=== PATIENT | male | born 1940 | race Caucasian/White ===

== ENCOUNTER 2019-05-29 08:33 | Outpatient (CLI) | payer BC, MEDICARE ==
[2019-05-29] MEDS ORDERED: Iopamidol 370 76% 100 ML VIAL ONE (09:00)
--- NOTE | 2019-05-29 12:52 | CT ---
CT ABDOMEN AND PELVIS WITH AND WITHOUT IV CONTRAST 05/29/2019 CLINICAL INFORMATION: Microscopic hematuria. COMPARISON: None. Technique: Multiple contiguous axial CT images are obtained through the abdomen and pelvis with IV contrast. Cor onal reformatted images are provided. FINDINGS: Lower Chest: There are calcifications of the mitral valve annulus. There is linear bibasilar atelecta sis and/or scarring present. Vessels: Vascular calcifications are seen in the abdominal aorta and the iliac arteries. Abdomen: Portal vein:Patent Gallbladder: There is a large gallbladder calculus present measuring 3.2 cm. Liver: within normal limits. Spleen: within normal limits. Pancreas: within normal limits. Adrenals: within normal limits. Kidneys: There are 2 fluid attenuation hypodense cystic lesions in the midportion right kidney measur ing 1.7 and 1.8 cm respectively compatible with cysts. There are a few nonobstructing bilateral renal calculi present. Largest calculus in the inferior pole right kidney measures 8 mm with largest calculus midportion left kidney measuring 5 mm. There is no hydronephrosis. No ureteral calculus is seen bilaterally. Bowel: There is colonic diverticulosis present throughout the colon with small amount of retained fec al material noted throughout the colon. Loops of small bowel are normal in caliber. Appendix: The appendix is visualized and normal in caliber. Peritoneum: No ascites or free air; no fluid collection. Mesentery and Retroperitoneum: No enlarged mesenteric or retroperitoneal lymph nodes. Abdominal Wall: within normal limits. Pelvis: Reproductive Organs: No pelvic masses. Pelvis within normal limits. Bladder: within normal limits. Bones: There is severe left hip osteoarthritis. Degenerative changes are seen in the spine. Sclerotic densities are seen in the right proximal femur likely attributable to bone islands. IMPRESSION: 1. Nonobstructing bilateral renal calculi. No ureteral calculus is seen. 2. Cholelithiasis with large gallbladder calculus present. 3. Colonic diverticulosis with small amount of retained fecal material seen throughout the colon. 4. Right renal cysts. 5. Severe left hip osteoarthritis
== END 2019-05-29 08:34 | disposition home or self-care (01) ==
LOC: SCSCT 08:33
PROVIDERS: ATTEND Urology
DX: R31.29 Other microscopic hematuria (principal); M16.12 Unilateral primary osteoarthritis, left hip; N28.1 Cyst of kidney, acquired; K57.30 Diverticulosis of large intestine without perforation or abscess without bleeding; K80.20 Calculus of gallbladder without cholecystitis without obstruction
CPT/HCPCS: 74178; 82565; Q9967

== ENCOUNTER 2019-06-21 08:39 | Outpatient (CLI) | payer BC, MEDICARE ==
--- NOTE | 2019-06-21 11:59 | HP ---
HISTORY OF PRESENT ILLNESS: Mr. Nir Thomas is a very pleasant 78-year-old gentleman accompanied by his , who presents to the [facility] for evaluation of venous ulcerations of the left anterior lower leg. The patient states that weeping from the skin of his left anterior lower leg began approximately 3 weeks ago. He states that he was placed on clindamycin 300 mg p.o. t.i.d. x7 days by Dr. Carter on 06/16/2019. The patient states that in addition, he was seen in the emergency department and given a course of IV clindamycin. The patient states that the wounds of his left anterior lower leg improved in their appearance after the administration of IV clindamycin. The patient states that in the emergency department, the ulcerations were dressed with Xeroform gauze. The patient continues to have pain associated with the ulcerations of his left anterior lower leg. The patient was referred to the Wound Center by Dr. Carter. PAST MEDICAL HISTORY: 1. History of left lower extremity DVT. 2. Osteoarthritis. 3. Nephrolithiasis. 4. Gout. 5. Hypothyroidism. 6. History of diverticulitis. 7. Obstructive sleep apnea. PAST SURGICAL HISTORY: Vas ligation in 1977. MEDICATIONS: 1. Acidophilus. 2. Oxybutynin. 3. LEAD ENGINEER Thyroid. 4. Myrbetriq. 5. Xarelto. 6. Coenzyme Q10. 7. Gabapentin. 8. Lisinopril. 9. Vitamin D. 10. Tramadol. 11. Magnesium. 12. DHEA. ALLERGIES: ELIQUIS, INFLUENZA VACCINE, XYLOCAINE. SOCIAL HISTORY: Negative for tobacco or EtOH use. FAMILY HISTORY: Family history significant for diabetes mellitus. The patient states that his father was diagnosed with diabetes mellitus. Family history is negative for coronary artery disease. REVIEW OF SYSTEMS: The patient reports one episode in the past of weeping of the skin of his left anterior lower leg. The patient states that he has been prescribed compression garments in the past, but has been unable to use compression stockings because of difficulty in putting on the stockings. The patient states that he has been applying compression to his left lower leg with the use of Mundo bandages. PHYSICAL EXAMINATION: VITAL SIGNS: Temperature 97.7, pulse 65, respirations 21, and blood pressure 180/80. GENERAL: A 78-year-old gentleman, lying on stretcher in examination room, in no acute distress. HEENT: Normocephalic, atraumatic. NECK: No nuchal rigidity. CHEST: Clear to auscultation. CV: Regular rate and rhythm. ABDOMEN: Soft. EXTREMITIES: Numerous small ulcerations of the left anterior lower leg are present within an area measuring approximately 11.0 x 16.0 cm. No purulent drainage is associated with any of the wounds. Erythema of the left anterior lower leg is present. No maceration of the skin of the left anterior lower leg is noted. A posterior tibial pulse is easily palpable on the left. Edema of the left lower leg is noted on exam today. NEUROLOGIC: Grossly nonfocal. ASSESSMENT AND PLAN: 1. 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 Xeroform gauze followed by ABDs, Webril, and the 3M Coban 2 Layer Compression System will be applied to the ulcerations today. The patient is to continue clindamycin as previously prescribed. I will see Mr. Thomas again in 1 week. The patient understands and is in agreement with the preceding treatment plan for drainage, saturating all layers of the dressing applied in clinic today. The patient is to discontinue the 3M Coban 2 Layer Compression System and begin dressing changes of Xeroform gauze, followed by ABDs, Kerlix, and Mundo bandages. These dressing changes are to be performed on a daily basis until the patient's followup visit. 2. History of left lower extremity deep venous thrombosis. 3. Osteoarthritis. 4. Nephrolithiasis. 5. Gout. 6. Hypothyroidism. 7. History of diverticulitis. 8. Obstructive sleep apnea. Job ID: [id number]
[2019-06-21] MEDS ORDERED: Sodium Chloride 0.9% 15 ML NEB ONE (15:00)
== END 2019-06-21 08:40 | disposition home or self-care (01) ==
LOC: WCC 08:39
PROVIDERS: ATTEND Family Medicine
DX: I83.228 Varicose veins of left lower extremity with both ulcer of other part of lower extremity and inflammation (principal); L97.929 Non-pressure chronic ulcer of unspecified part of left lower leg with unspecified severity; E03.9 Hypothyroidism, unspecified; N20.0 Calculus of kidney; G47.33 Obstructive sleep apnea (adult) (pediatric); M10.9 Gout, unspecified; Z86.73 Personal history of transient ischemic attack (TIA), and cerebral infarction without residual deficits
CPT/HCPCS: 29581; 99204; A4218; G0463

== ENCOUNTER 2019-06-28 11:35 | Outpatient (CLI) | payer BC, MEDICARE ==
--- NOTE | 2019-06-28 10:15 | PRG ---
DATE OF SERVICE: 06/28/2019 HISTORY: Mr. Nir Thomas is a very pleasant 78-year-old gentleman, accompanied by his , who presents to the [facility] Center for evaluation of venous ulcerations of the left anterior lower leg. The patient previously stated that weeping from the skin of his left anterior lower leg began approximately 3 weeks prior to his initial presentation to the Wound Center. He stated that he was placed on clindamycin 300 mg p.o. t.i.d. x7 days by Dr. Carter on 06/16/2019. The patient stated that in addition, he was seen in the emergency department and given a course of IV clindamycin. The patient stated that the wounds of his left anterior lower leg improved in their appearance after the administration of IV clindamycin. The patient stated that in the emergency department, the ulcerations were dressed with Xeroform gauze. The patient again reports pain associated with the ulcerations of his left anterior lower leg. The patient was referred to the Wound Center by Dr. Carter. After being seen in the Wound Center, the ulcerations were treated with the application of Xeroform gauze, ABDs, Webril, and the 3M Coban 2 Layer Compression System. The patient was unable to tolerate the 3M Coban 2 Layer Compression System and the patient's instead dressed the ulcerations with Xeroform gauze, followed by an ABD, Kerlix, and an Mundo bandage after discontinuing the 3M Coban 2 Layer Compression System. PHYSICAL EXAMINATION: VITAL SIGNS: Temperature 97.4, pulse 63, respirations 20, and blood pressure 160/77. EXTREMITIES: Multiple small ulcerations of the left anterior lower leg are present within an area, measuring approximately 8.5 x 13.0 cm. The dimensions of this area at the time of the patient's last visit were approximately 11.0 x 16.0 cm. No purulent drainage is associated with any of the wounds. Erythema of the left anterior lower leg is present. No maceration of the skin of the left anterior lower leg is noted. A posterior tibial pulse is easily palpable on the left. Edema of the left lower leg is noted on exam today. The appearance of the left anterior lower leg has markedly improved since the patient's last visit. ASSESSMENT AND PLAN: 1. 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 Xeroform gauze, followed by Piper Blackwell, and an Mundo bandage will be applied to the ulcerations today. The patient's is to continue the preceding dressing changes on a daily basis after cleansing and irrigation. I will see Mr. Thomas again in 2 weeks. At this time, arrangements will be made for the initiation of in-home lymphedema therapy. Arrangements will also be made today for the home delivery of wraparound compression. The patient understands and is in agreement with the preceding treatment plan. 2. History of left lower extremity deep venous thrombosis. 3. Osteoarthritis. 4. Nephrolithiasis. 5. Gout. 6. Hypothyroidism. 7. History of diverticulitis. 8. Obstructive sleep apnea. Job ID: [id number]
== END 2019-06-28 11:36 | disposition home or self-care (01) ==
LOC: WCC 11:35
PROVIDERS: ATTEND Family Medicine
DX: I83.229 Varicose veins of left lower extremity with both ulcer of unspecified site and inflammation (principal); I89.0 Lymphedema, not elsewhere classified; N20.0 Calculus of kidney; M10.9 Gout, unspecified; G47.33 Obstructive sleep apnea (adult) (pediatric); M19.90 Unspecified osteoarthritis, unspecified site; Z86.718 Personal history of other venous thrombosis and embolism; Z87.19 Personal history of other diseases of the digestive system

== ENCOUNTER 2019-07-12 13:01 | Outpatient (CLI) | payer BC, MEDICARE ==
--- NOTE | 2019-07-12 10:58 | PRG ---
DATE OF SERVICE: 07/12/2019 HISTORY: Mr. Nir Thomas is a very pleasant 78-year-old gentleman, accompanied by his , who presents to the [facility]ound Center for evaluation of venous ulcerations of the left anterior lower leg. The patient previously stated that weeping from the skin of his left anterior lower leg began approximately 3 weeks prior to his initial presentation to the Wound Center. He stated that he was placed on clindamycin 300 mg p.o. t.i.d. x7 days by Dr. Carter on 06/16/2019. The patient stated that, in addition, he was seen in the emergency department and given a course of IV clindamycin. The patient stated that the wounds of his left anterior lower leg improved in their appearance after the administration of IV clindamycin. The patient stated that in the emergency department, the ulcerations were dressed with Xeroform gauze. The patient was referred to the Wound Center by Dr. Carter. After being seen in the Wound Center, the ulcerations were dressed with the application of Xeroform gauze, ABDs, Webril, and the 3M Coban 2 Layer Compression System. The patient was unable to tolerate the 3M Coban 2 Layer Compression System and the patient's instead dressed the ulcerations with Xeroform gauze, followed by an ABD, Kerlix, and an Mundo bandage after discontinuing the 3M Coban 2 Layer Compression System. PHYSICAL EXAMINATION: VITAL SIGNS: Temperature 97.5, pulse 66, respirations 21, and blood pressure 142/69. EXTREMITIES: Multiple small ulcerations of the left anterior lower leg are present within an area measuring approximately 11.0 x 13.0 cm. The dimensions of this area at the time of the patient's last visit were approximately 8.5 x 13.0 cm. No purulent drainage is associated with any of the wounds. A sample of the serous drainage associated with the wounds was sent for aerobic and anaerobic cultures. Erythema of the left anterior lower leg is present. No maceration of the skin of the left anterior lower leg is noted. A posterior tibial pulse is easily palpable on the left. Edema of the left lower leg is noted on exam today. ASSESSMENT AND PLAN: 1. 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 Xeroform gauze, followed by ABDs, Kerlix, and an Mundo bandage will be applied to the ulcerations today. The patient's is to continue the preceding dressing changes on a daily basis after cleansing and irrigation. The patient has been given a prescription for Augmentin 875/125 #21 p.o. b.i.d. x10 days. Antibiotic therapy will be modified based upon the results of the cultures obtained today. I will see Mr. hTomas again in 2 weeks. At this time, arrangements will be continued for the initiation of in-home lymphedema therapy. Arrangements will also continue for the home delivery of wraparound compression. The patient states that he has had 2 venous ultrasounds at [facility], ordered by Dr. Cruz. 2. History of left lower extremity deep venous thrombosis. 3. Osteoarthritis. 4. Nephrolithiasis. 5. Gout. 6. Hypothyroidism. 7. History of diverticulitis. 8. Obstructive sleep apnea. Job ID: [id number]
== END 2019-07-12 13:02 | disposition home or self-care (01) ==
LOC: WCC 13:01
PROVIDERS: ATTEND Family Medicine
DX: I83.228 Varicose veins of left lower extremity with both ulcer of other part of lower extremity and inflammation (principal); L97.929 Non-pressure chronic ulcer of unspecified part of left lower leg with unspecified severity; M19.90 Unspecified osteoarthritis, unspecified site; N20.0 Calculus of kidney; M10.9 Gout, unspecified; E03.9 Hypothyroidism, unspecified; G47.33 Obstructive sleep apnea (adult) (pediatric); Z87.19 Personal history of other diseases of the digestive system; Z86.718 Personal history of other venous thrombosis and embolism
CPT/HCPCS: 87070; 87077; 87186; 87205

== ENCOUNTER 2019-07-26 09:10 | Outpatient (CLI) | payer BC, MEDICARE ==
[~2019-07-26 09:10] MED LIST: Sodium Chloride 0.9% 15 ML NEB ONE
--- NOTE | 2019-07-26 10:38 | PRG ---
DATE OF SERVICE: 07/26/2019 SUBJECTIVE: Mr. Nir Thomas is a very pleasant 78-year-old gentleman, accompanied by his , who presents to the Wound Center for evaluation of venous ulcerations of the left lower leg. The patient previously stated that weeping from the skin of his left anterior lower leg began approximately 3 weeks prior to his initial presentation to the Wound Center. He stated that he was placed on clindamycin 300 mg p.o. t.i.d. x7 days by Dr. Carter on 06/16/2019. The patient stated that in addition, he was seen in the emergency department and given a course of IV clindamycin. The patient stated that the wounds of his left anterior lower leg improved in their appearance after the administration of IV clindamycin. The patient stated that in the emergency department, the ulcerations were dressed with Xeroform gauze. The patient was referred to the Wound Center by Dr. Carter. After being seen in the Wound Center, the ulcerations were dressed with the application of Xeroform gauze, ABDs, Webril, and the 3M Coban 2-Layer Compression System. The patient was unable to tolerate the 3M Coban 2-Layer Compression System and the patient's instead dressed the ulcerations with Xeroform gauze followed by an ABD, Kerlix, and an Mundo bandage after discontinuing the 3M Coban 2-Layer Compression System. At the time of the patient's last visit, the patient was placed on dressing changes of Xeroform gauze followed by ABDs, Kerlix, and an Mundo bandage. The patient states that in addition to the preceding dressings, the patient has been utilizing a compression stocking over the left foot and lower leg. PHYSICAL EXAMINATION: VITAL SIGNS: Temperature 97.5, pulse rate 62, respirations are 20, and blood pressure 154/72. EXTREMITIES: The left lower leg has markedly improved in its appearance since the patient's last visit. No purulent drainage is associated with any of the wounds. Erythema of the left lower leg is present secondary to stasis dermatitis. No maceration of the skin of the left anterior lower leg is noted. No significant edema of the left foot or lower leg is present on exam today. ASSESSMENT AND PLAN: 1. 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 Xeroform gauze followed by Piper Blackwell, and an Mundo bandage will be continued to the ulcerations on a daily basis after cleansing and irrigation. The patient's will continue to assist the patient with the preceding dressing changes. The patient is also to utilize his compression garment in conjunction with the preceding dressings. I will see Mr. Thomas again in 2 weeks. Arrangements will also continue for the initiation of in-home lymphedema therapy. The patient states he has received wraparound compression and one compression garment via home delivery. The patient has been given a prescription for Synalar ointment 0.025% to be applied to the areas of stasis dermatitis up to b.i.d. 2. History of left lower extremity deep venous thrombosis. 3. Osteoarthritis. 4. Nephrolithiasis. 5. Gout. 6. Hypothyroidism. 7. History of diverticulitis. 8. Obstructive sleep apnea. Job ID: [id number]
== END 2019-07-26 09:11 | disposition home or self-care (01) ==
LOC: WCC 09:10
PROVIDERS: ATTEND Family Medicine
DX: I83.228 Varicose veins of left lower extremity with both ulcer of other part of lower extremity and inflammation (principal); L97.929 Non-pressure chronic ulcer of unspecified part of left lower leg with unspecified severity; N20.0 Calculus of kidney; M19.90 Unspecified osteoarthritis, unspecified site; E03.9 Hypothyroidism, unspecified; G47.33 Obstructive sleep apnea (adult) (pediatric); M10.9 Gout, unspecified; Z86.718 Personal history of other venous thrombosis and embolism; Z87.19 Personal history of other diseases of the digestive system
CPT/HCPCS: A4218

== ENCOUNTER 2019-08-04 08:33 | Day surgery (SDC) | payer BC, MEDICARE ==
[2019-08-04] MEDS ORDERED: PROPOFOL 200 MG/20 ML VIAL ONE (11:35)
--- NOTE | 2019-08-04 16:18 | OP ---
DATE OF PROCEDURE: 08/04/2019 PROCEDURE PERFORMED: Esophagogastroduodenoscopy with biopsy, colonoscopy (incomplete). INDICATIONS FOR PROCEDURE: Melena, hematochezia. DESCRIPTION OF PROCEDURE: After the risks and benefits of the procedure were explained to the patient including risks of bleeding, infection, perforation, reaction to anesthesia, aspiration, and/or pain, informed consent was obtained. The patient was then taken to the endoscopy suite, where he was placed in a left lateral decubitus position following by deep sedation via propofol and anesthesia support. Once adequate sedation was achieved, the standard gastroscope was introduced into the mouth with intubation of the esophagus, stomach, and the proximal small intestine with the findings listed below. The patient tolerated this portion of the procedure well with no immediate perioperative complications. Upon conclusion of this phase of the procedures, all equipment was removed from the patient and the bed was rotated 180 degrees in anticipation of the colonoscopy. After digital rectal examination was performed, the standard colonoscope was introduced to the rectum and advanced to the proximal ascending colon with further progress unable to be achieved due to significant tortuosity, redundancy, and laxity of the colonic driscoll. The quality of the prep was poor with a large amount of retained solid and liquid stool. The patient tolerated the procedure well with no immediate perioperative complications. Upon conclusion of the colonoscopy, all equipment was removed from the patient and he was transferred to Day Stay in satisfactory condition. EGD FINDINGS: Esophagus: Normal-appearing mucosa was seen in the proximal, mid, and distal esophagus. The diaphragmatic pinch was seen at 48 cm while the gastroesophageal junction was seen at 45 cm denoting a 3 cm hiatal hernia, otherwise there was no evidence of erosions, ulcerations, mass, lesions, or active/recent bleeding. Stomach: Mild mucosal erythema in a slight mosaic pattern was seen throughout the entire stomach including the cardia, fundus, body, greater curvature, antrum, and incisura. A small gastric erosion was seen in the antrum, but did not exhibit overt ulceration. Biopsies were taken from this erosion as well as randomly throughout the rest of the stomach for further evaluation. There was no evidence of ulcerations, mass, lesions, or active/recent bleeding. Duodenum: Normal-appearing mucosa was seen in both duodenal bulb and second portion of the duodenum. There was no evidence of erosions, ulcerations, mass, lesions, or active/recent bleeding. IMPRESSION: 1. Xxio-mg-yqstwgkh mucosal erythema seen throughout the entire stomach consistent with nonspecific gastropathy. 2. A 3 cm hiatal hernia without Alberto's erosions/ulcerations. 3. No etiology for the patient's melena was seen during this portion of the examination. COLONOSCOPY FINDINGS: Digital rectal exam: Small external hemorrhoids were seen on external examination. Colon findings: A large amount of both retained solid and liquid stool was seen throughout the entire colon limiting visualization of the colonic mucosa. Aggressive irrigation was performed with sterile water with continued incomplete evaluation. Despite this poor colonic prep, the colonoscope was able to be advanced to the proximal ascending colon. The cecal intubation was not able to be achieved of the mucosa seen. Normal appearing mucosa was seen in the ascending and transverse colons; however, scattered diverticula were seen within the distal transverse, descending, and sigmoid colons. They were both small and large, but did not exhibit increased mucosal erythema, mucosal breakdown, or ulceration consistent with diverticulitis. Normal-appearing mucosa was then seen within the rectum with [id number] size internal hemorrhoids seen on retroflexion. IMPRESSION: 1. Incomplete evaluation of the colon with further progress limited to the proximal ascending colon. 2. Large amount of retained stool seen throughout the entire colon limiting visualization. 3. Qscjmnzn-fy-gkzjpa diverticulosis seen in the transverse, descending, and sigmoid colon. 4. Ibdue-ab-tctwtl sized internal hemorrhoids as well as external hemorrhoids (most likely reason for the patient's hematochezia). 5. No evidence of active/recent bleeding was seen during this examination. RECOMMENDATIONS: 1. We will follow up on the biopsy results of the stomach with further endoscopy indicated by the pathology report. 2. We would continue omeprazole daily given nonspecific gastropathy and erosive disease in the gastric antrum. 3. We would continue high-fiber diet along with metamucil 1 tablespoon daily as part of a bowel regimen for chronic constipation that could contribute to hemorrhoid formation. 4. We would consider use of Preparation H Maximum Strength twice daily for 14 days for external hemorrhoidal bleeding if it flares. 5. We would have the patient follow up in a GI Clinic in 4 weeks for followup regarding melenic stools, hematochezia, and chronic constipation. Job ID: [id number]
== END 2019-08-04 11:45 | disposition home or self-care (01) ==
LOC: SDC 08:33
PROVIDERS: ATTEND Internal Medicine
PROC: 0DJD8ZZ Inspection of Lower Intestinal Tract, Via Natural or Artificial Opening Endoscopic (ICD-10-PCS; principal; 2019-08-04)
PROC: 0DB68ZX Excision of Stomach, Via Natural or Artificial Opening Endoscopic, Diagnostic (ICD-10-PCS; principal; 2019-08-04)
DX: K57.31 Diverticulosis of large intestine without perforation or abscess with bleeding (principal); K31.89 Other diseases of stomach and duodenum; K64.4 Residual hemorrhoidal skin tags; K64.8 Other hemorrhoids; K59.09 Other constipation; K44.9 Diaphragmatic hernia without obstruction or gangrene; G47.30 Sleep apnea, unspecified; E78.5 Hyperlipidemia, unspecified; I42.9 Cardiomyopathy, unspecified; D68.51 Activated protein C resistance; E66.01 Morbid (severe) obesity due to excess calories; Z68.42 Body mass index [BMI] 45.0-49.9, adult; Z79.01 Long term (current) use of anticoagulants; Z79.899 Other long term (current) drug therapy; Z88.1 Allergy status to other antibiotic agents; Z88.7 Allergy status to serum and vaccine; Z99.89 Dependence on other enabling machines and devices
CPT/HCPCS: 88305; 88312; J2704

== ENCOUNTER 2019-08-09 10:57 | Outpatient (CLI) | payer BC, MEDICARE ==
[2019-08-09] MEDS ORDERED: Sodium Chloride 0.9% 15 ML NEB ONE (11:12)
--- NOTE | 2019-08-09 11:24 | PRG ---
DATE OF SERVICE: 08/09/2019 SUBJECTIVE HISTORY: Mr. Nir Thomas is a very pleasant 78-year-old gentleman accompanied by his , who presents to the Wound Center for evaluation of venous ulcerations of the left lower leg. The patient previously stated that weeping from the skin of his left anterior lower leg began approximately 3 weeks prior to his initial presentation to the Wound Center. He stated that he was placed on clindamycin 300 mg p.o. t.i.d. x7 days by Dr. Carter on 06/16/2019. The patient stated that in addition, he was seen in the emergency department and given a course of IV clindamycin. The patient stated that the wounds of his left anterior lower leg improved in their appearance after the administration of IV clindamycin. The patient stated that in the emergency department, the ulcerations were dressed with Xeroform gauze. The patient was referred to the Wound Center by Dr. Carter. After being seen in the Wound Center, the ulcerations were dressed with the application of Xeroform gauze, ABDs, Webril, and the 3M Coban 2 Layer Compression System. The patient was unable to tolerate the 3M Coban 2 Layer Compression System and the patient's instead dressed the ulcerations with Xeroform gauze, followed by an ABD, Kerlix, and an Mundo bandage after discontinuing the 3M Coban 2 Layer Compression System. The patient is now receiving dressing changes of Xeroform gauze followed by Kerlix in conjunction with the use of a compression stocking over the left foot and lower leg. The patient states he has received his pneumatic pump. He also states he has received wraparound compression via home delivery. PHYSICAL EXAMINATION: VITAL SIGNS: Temperature 98, pulse 65, respirations 20, and blood pressure 127/58. EXTREMITIES: Two small ulcerations are present over the left lower leg. The largest measures 0.6 x 0.7 cm. No purulent drainage is associated with the wound. Erythema of the left lower leg is present secondary to stasis dermatitis. No maceration of the skin of the left anterior lower leg is noted. Edema of the left foot and lower leg is present on exam today. ASSESSMENT AND PLAN: 1. 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 Xeroform gauze followed by Kerlix in conjunction with the patient's compression garment will be applied to the ulcerations today. The patient's is to continue the preceding dressing changes in conjunction with the patient's compression garment on a daily basis after cleansing and irrigation. I will see Mr. Thomas again in 2 weeks. The patient has been asked to bring the wraparound compression that he received via home delivery to his next clinic visit. The patient is also to continue Synalar ointment 0.025% to the areas of stasis dermatitis up to b.i.d. 2. History of left lower extremity deep venous thrombosis. 3. Osteoarthritis. 4. Nephrolithiasis. 5. Gout. 6. Hypothyroidism. 7. History of diverticulitis. 8. Obstructive sleep apnea. Job ID: [id number]
== END 2019-08-09 10:58 | disposition home or self-care (01) ==
LOC: WCC 10:57
PROVIDERS: ATTEND Family Medicine
DX: I83.229 Varicose veins of left lower extremity with both ulcer of unspecified site and inflammation (principal); N20.0 Calculus of kidney; M10.9 Gout, unspecified; E03.9 Hypothyroidism, unspecified; G47.33 Obstructive sleep apnea (adult) (pediatric); Z86.718 Personal history of other venous thrombosis and embolism; Z87.19 Personal history of other diseases of the digestive system
CPT/HCPCS: 97602; A4218

== ENCOUNTER 2019-08-23 10:00 | Outpatient (CLI) | payer BC, MEDICARE ==
[2019-08-23] MEDS ORDERED: Sodium Chloride 0.9% 15 ML NEB ONE (17:06)
--- NOTE | 2019-08-23 17:22 | PRG ---
DATE OF SERVICE: 08/23/2019 HISTORY: Mr. Nir Thomas is a very pleasant 78-year-old gentleman, accompanied by his , who [facility] of venous ulcerations of the left lower leg. Today, the patient complains of erythema and weeping of his left lower leg. The patient states that the erythema and weeping began after beginning treatment with a pneumatic pump for in-home lymphedema therapy, but the patient has no other complaints today. He denies any fever or chills. PHYSICAL EXAMINATION: VITAL SIGNS: Temperature 97.5, pulse 88, respirations 20, and blood pressure 94/59. EXTREMITIES: A large area of erythema associated with weeping of the skin is present, which measures approximately 35 x 28 cm. Edema of the left foot and lower leg is also present on exam today. ASSESSMENT AND PLAN: 1. 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 Today, the patient presents with only erythema and weeping of the skin of the left lower leg. Dressing changes of Xeroform gauze followed by Piper Blackwell, and an Mundo bandage are to be performed on a daily basis after cleansing and irrigation. The patient's has been told that she may utilize wraparound compression in lieu of an Mundo bandage. I will see Mr. Thomas again in 1 week. The patient has also been given a prescription for Augmentin 875/125, #21 p.o. b.i.d. x10 days, Synalar ointment will be continued to areas of stasis dermatitis at the time of dressing changes. 2. History of left lower extremity deep venous thrombosis. 3. Osteoarthritis. 4. Nephrolithiasis. 5. Gout. 6. Hypothyroidism. 7. History of diverticulitis. 8. Obstructive sleep apnea. Job ID: [id number]
== END 2019-08-23 10:01 | disposition home or self-care (01) ==
LOC: WCC 10:00
PROVIDERS: ATTEND Family Medicine
DX: I83.229 Varicose veins of left lower extremity with both ulcer of unspecified site and inflammation (principal); N20.0 Calculus of kidney; E03.9 Hypothyroidism, unspecified; G47.33 Obstructive sleep apnea (adult) (pediatric); M19.90 Unspecified osteoarthritis, unspecified site; M10.9 Gout, unspecified; Z86.718 Personal history of other venous thrombosis and embolism; Z87.19 Personal history of other diseases of the digestive system
CPT/HCPCS: A4218

== ENCOUNTER 2019-08-30 15:48 | Outpatient (CLI) | payer BC, MEDICARE ==
--- NOTE | 2019-08-30 14:13 | PRG ---
DATE OF SERVICE: 08/30/2019 SUBJECTIVE HISTORY: Mr. Nir Thomas is a very pleasant 78-year-old gentleman, accompanied by his , who presents [facility] for evaluation of venous ulcerations of the left lower leg. Again today, the patient complains of erythema and weeping of his left lower leg. He states that the weeping of his left lower leg is less however than that at the time of his visit 1 week ago. The patient stated that the erythema and weeping began after beginning treatment with a pneumatic pump for in-home lymphedema therapy. The patient has no other complaints today. He denies any fever or chills. The patient has been receiving dressing changes of Xeroform gauze with the assistance of his . These dressing changes are being performed on a daily basis after cleansing and irrigation. OBJECTIVE: VITAL SIGNS: Temperature 97.6, pulse 63, respirations 22, and blood pressure 166/77. EXTREMITIES: The left lower leg is again erythematous, weeping of the skin is also present. Edema of the left foot and lower leg is also noted on exam today. ASSESSMENT AND PLAN: 1. 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 Today, the patient presents with erythema and weeping of the skin of the left lower leg. Dressing changes of ABDs followed by Piper are to be performed on a daily basis after cleansing and irrigation. Xeroform gauze will be discontinued. The patient is to perform the preceding dressing changes in conjunction with the use of wraparound compression or a compression garment. The patient has been instructed to refrain from using his pneumatic pump for in-home lymphedema therapy at the present time. I will see Mr. Thomas again in 1 week. The patient is to continue Augmentin 875/125 #21 p.o. b.i.d. x10 days as previously prescribed. Synalar ointment will be continued to the areas of stasis dermatitis at the time of dressing changes. 2. History of left lower extremity deep venous thrombosis. 3. Osteoarthritis. 4. Nephrolithiasis. 5. Gout. 6. Hypothyroidism. 7. History of diverticulitis. 8. Obstructive sleep apnea. Job ID: [id number]
== END 2019-08-30 15:49 | disposition home or self-care (01) ==
LOC: WCC 15:48
PROVIDERS: ATTEND Family Medicine
DX: I83.228 Varicose veins of left lower extremity with both ulcer of other part of lower extremity and inflammation (principal); L97.929 Non-pressure chronic ulcer of unspecified part of left lower leg with unspecified severity; N20.0 Calculus of kidney; M19.90 Unspecified osteoarthritis, unspecified site; E03.9 Hypothyroidism, unspecified; M10.9 Gout, unspecified; G47.33 Obstructive sleep apnea (adult) (pediatric); Z87.19 Personal history of other diseases of the digestive system; Z86.718 Personal history of other venous thrombosis and embolism

== ENCOUNTER 2019-09-07 11:10 | Outpatient (CLI) | payer BC, MEDICARE ==
--- NOTE | 2019-09-07 12:10 | PRG ---
DATE OF SERVICE: 09/07/2019 SUBJECTIVE: Mr. Nir Thomas is a very pleasant 78-year-old gentleman, accompanied by his who presents [facility] evaluation of venous ulcerations of the left lower leg. Again, the patient reports erythema and weeping of his left lower leg. He again states however that the weeping of his left lower leg is less than that at the time of his visit 1 week ago. The patient stated that the erythema and weeping began after beginning treatment with a pneumatic pump for in-home lymphedema therapy. The patient has no other complaints today. He denies any fever or chills. OBJECTIVE: VITAL SIGNS: Temperature 98.2, pulse 68, respirations 20, blood pressure 147/73. EXTREMITIES: The left lower leg is again erythematous. Weeping of the skin is also present. Edema of the left foot and lower leg is also noted on today's exam. ASSESSMENT AND PLAN: 1. 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 Today, the patient presents with erythema and weeping of the skin of the left lower leg. As stated above, the weeping of the skin of the left lower leg is less than that noted at the time of the patient's visit 1 week ago. Dressing changes of ABDs followed by Piper will be continued on a daily basis after cleansing and irrigation. The patient is to perform the preceding dressing changes in conjunction with the use of wraparound compression or a compression garment. The patient has been instructed to refrain from utilizing his pneumatic pump for in-home lymphedema therapy until his erythema and weeping of the skin of his left lower leg has resolved completely. Mr. Thomas will contact the clinic in order to schedule a followup visit for 2 to 4 weeks from today. Synalar ointment will be continued to the areas of stasis dermatitis at the time of dressing changes. 2. History of left lower extremity deep venous thrombosis. 3. Osteoarthritis. 4. Nephrolithiasis. 5. Gout. 6. Hypothyroidism. 7. History of diverticulitis. 8. Obstructive sleep apnea. Job ID: [id number]
== END 2019-09-07 11:11 | disposition home or self-care (01) ==
LOC: WCC 11:10
PROVIDERS: ATTEND Family Medicine
DX: I83.228 Varicose veins of left lower extremity with both ulcer of other part of lower extremity and inflammation (principal); Z86.73 Personal history of transient ischemic attack (TIA), and cerebral infarction without residual deficits; M19.90 Unspecified osteoarthritis, unspecified site; M10.9 Gout, unspecified; E03.9 Hypothyroidism, unspecified; G47.33 Obstructive sleep apnea (adult) (pediatric); N20.0 Calculus of kidney

== ENCOUNTER 2019-10-20 11:35 | Outpatient (CLI) | payer BC, MEDICARE ==
--- NOTE | 2019-10-20 12:41 | RAD ---
KUB: DATE: 10/20/2019. COMPARISON: None. HISTORY: Renal calculi. COMPARISON: Correlation is made to a CT of the abdomen and pelvis on 05/29/2019. 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 The bowel gas pattern appears nonobstructed. T he degree of stool and bowel gas limits detailed assessment for renal stone disease. A calcification in the right upper quadrant suggests a right renal calculus measuring approximately [address] examination demonstrated additional punctate renal calculi which cannot be visualized on this examina tion, likely technical in nature. IMPRESSION: A 7 mm calcification in the right upper quadrant suggesting a right intrarenal calculus. POS: OFF
== END 2019-10-20 11:36 | disposition home or self-care (01) ==
LOC: BICRAD 11:35
PROVIDERS: ATTEND Urology
DX: N20.0 Calculus of kidney (principal); N40.1 Benign prostatic hyperplasia with lower urinary tract symptoms; N13.8 Other obstructive and reflux uropathy; R93.5 Abnormal findings on diagnostic imaging of other abdominal regions, including retroperitoneum
CPT/HCPCS: 74018

== ENCOUNTER 2020-07-04 12:22 | Outpatient (CLI) | payer BC, MEDICARE ==
--- NOTE | 2020-07-04 14:10 | RAD ---
EXAM: KUB: 07/04/20 HISTORY: Renal calculi. COMPARISON: 10/20/19 FINDINGS: There is a somewhat oblong calcification in the region of the right kidney and several smaller poorly defined calculi in the region of the let kidney, evidence for bilateral renal calculi but no evidenc e for overt ureteral calculus. IMPRESSION: Evidence for bilateral renal calculi. POS: OFF
== END 2020-07-04 12:23 | disposition home or self-care (01) ==
LOC: SCSRAD 12:22
PROVIDERS: ATTEND Urology
DX: N20.0 Calculus of kidney (principal)
CPT/HCPCS: 74018

== ENCOUNTER 2021-07-02 12:29 | Outpatient (CLI) | payer BC, MEDICARE | END 2021-07-02 12:30 | disposition home or self-care (01) | LOC: SCSRAD 12:29 | PROVIDERS: ATTEND Urology | DX: N20.0 Calculus of kidney (principal); M16.11 Unilateral primary osteoarthritis, right hip | CPT/HCPCS: 74018 ==

== ENCOUNTER 2021-07-16 12:54 | Outpatient (CLI) | payer BC, MEDICARE | END 2021-07-16 12:55 | disposition home or self-care (01) | PROVIDERS: ATTEND Family Medicine | DX: Z74.09 Other reduced mobility (principal) ==

== ENCOUNTER 2023-07-15 10:43 | Outpatient (CLI) | payer BC, MEDICARE | END 2023-07-15 10:44 | disposition home or self-care (01) | LOC: RAD 10:43 | PROVIDERS: ATTEND Internal Medicine Critical Care Medicine | DX: R06.00 Dyspnea, unspecified (principal) | CPT/HCPCS: 71046 ==

== ENCOUNTER 2023-09-02 06:25 | Inpatient (IN) | payer MEDICARE, BC ==
[2023-09-02 06:54] LABS: #Eosinphils 0.3 thou/uL (0.0-0.7); #Monocytes 0.7 thou/uL (0.11-0.59); #Neutrophils 3.8 thou/uL (1.40-6.50); %Basophils 0.3 % (0.0-1.0); %Eosinophils 5.4 % (0.0-10.0); %Lymphocytes 20.2 % (21.0-51.0); %Neutrophils 61.8 % (42.0-75.0); Hematocrit 42.4 % (42.0-52.0); Hemoglobin 13.4 g/dL (14.0-18.0); Mean Corpuscular HGB CONC 31.6 g/dL (32.0-36.0); Mean Corpuscular Hemoglobin 29.5 pg (27.0-31.0); Mean Corpuscular Volume 93.4 fl (78.0-98.0); Mean Platelet Volume 8.3 fL (7.4-10.4); Platelet Count 295 10x3/uL (130-400); RBC Distribution Width 14.1 % (11.5-14.5); Red Blood Cell (RBC) Count 4.54 mill/uL (4.70-6.10); White Blood Cell (WBC) Count 6.1 10x3/uL (4.8-10.8)
[2023-09-02 07:13] LABS: PTT 28.5 sec (22.9-36.1)
[2023-09-02 07:14] LABS: Anion Gap 12 mmol/L (10-20); BUN (Urea Nitrogen) 20 mg/dL (8.4-25.7); Calc. Creatinine Clearance 133 mL/min (70-130); Calcium 9.4 mg/dL (7.8-10.44); Carbon Dioxide 26 mmol/L (23-31); Chloride 103 mmol/L (98-107); Estimated GFR 90; Glucose 89 mg/dL (83-110); Potassium 4.1 mmol/L (3.5-5.1); Sodium 137 mmol/L (136-145)
[2023-09-02] MEDS ORDERED: diphenhydrAMINE 50 MG/ML VIAL IVP PRN (07:20)
[2023-09-02] MEDS ORDERED: Docusate 100 MG CAP PO PRN (07:20)
[2023-09-02] MEDS ORDERED: Promethazine 25 MG TAB PO PRN (07:20)
[2023-09-02] MEDS ORDERED: Labetalol HCl 100 MG/20 ML VIAL SLOW IVP PRN (07:20)
[2023-09-02] MEDS ORDERED: Ondansetron PF 4 MG/2 ML Vial IVP PRN (07:20)
[2023-09-02] MEDS ORDERED: HYDROcodone/Acetaminophen 7.5/325 mg Tablet PO PRN (07:20)
[2023-09-02] MEDS ORDERED: Morphine 2 MG/ML VIAL SLOW IVP PRN (07:20)
[2023-09-02] MEDS ORDERED: Mag-Al 1200 mg/1200 mg/30 ML UDCUP PO PRN (07:20)
[2023-09-02 07:25] LABS: INR-International Normal Ratio 1.2; Prothrombin Time 15.3 sec (12.0-14.7)
[2023-09-02] MEDS ORDERED: Sodium Chloride 0.9% 1,000 ML IV SCH (07:30)
[2023-09-02] MEDS ORDERED: Promethazine HCl 25 MG/ML VIAL IM PRN (07:55)
[2023-09-02] MEDS ORDERED: HYDROmorphone 2 MG/ML VIAL SLOW IVP PRN (07:55)
[2023-09-02] MEDS ORDERED: Ondansetron HCl/PF 4 MG/2 ML Vial IVP PRN (07:55)
[2023-09-02] MEDS ORDERED: EPINEPHrine 1 MG/ML VIAL ONE ×3 (08:03→09:20)
[2023-09-02] MEDS ORDERED: Thrombin 5000 UNITS/5 ML VIAL ONE (08:04)
[2023-09-02] MEDS ORDERED: Vancomycin 1 GM VIAL ONE (08:04)
[2023-09-02] MEDS ORDERED: Lidocaine 1% (PF) 30 ML VIAL ONE (08:04)
[2023-09-02] MEDS ORDERED: GENTAMICIN IV SCH (08:15)
[2023-09-02] MEDS ORDERED: VANCOMYCIN HCL IV SCH (08:15)
[2023-09-02] MEDS ORDERED: SODIUM CHLORIDE 0.9% IV SCH (08:15)
[2023-09-02] MEDS ORDERED: SUGAMMADEX SODIUM 200 MG/2 ML VIAL ONE (08:27)
[2023-09-02] MEDS ORDERED: fentaNYL PF 100 MCG/2 ML SYRINGE ONE ×2 (08:32→09:30)
[2023-09-02] MEDS ORDERED: Dexamethasone 4 mg/ml Vial ONE (08:32)
[2023-09-02] MEDS ORDERED: Lidocaine 2% PF 5 ML VIAL ONE (08:32)
[2023-09-02] MEDS ORDERED: PROPOFOL 20 ML ONE ×2 (08:32→09:31)
[2023-09-02] MEDS ORDERED: Rocuronium Bromide 10 MG/ML (10ML VIAL) ONE ×2 (08:32→09:04)
[2023-09-02] MEDS ORDERED: Ondansetron PF 4 MG/2 ML Vial ONE ×2 (08:32→09:04)
[2023-09-02] MEDS ORDERED: CEFAZOLIN 2 GM VIAL ONE (08:46)
[2023-09-02] MEDS ORDERED: Sodium Chloride 0.9% 100 ML ONE (08:46)
[2023-09-02] MEDS ORDERED: Vancomycin 1.5 GM in Sodium Chloride 0.9% 250 ML 300 ML IVPB SCH (09:00)
[2023-09-02] MEDS ORDERED: PROPOFOL 200 MG/20 ML VIAL ONE (09:04)
[2023-09-02] MEDS ORDERED: Dexamethasone 20 MG/5 ML VIAL ONE (09:04)
[2023-09-02] MEDS ORDERED: Lidocaine 1% PF 5 ML VIAL ONE (09:04)
[2023-09-02] MEDS ORDERED: Bupivacaine PF 0.5% 30 ML VIAL ONE (09:06)
[2023-09-02] MEDS ORDERED: Bupivacaine 0.25% HCL 30 ML VIAL ONE (09:20)
[2023-09-02] MEDS ORDERED: fentaNYL 50 mcg/mL 1 mL Vial ONE ×3 (10:41→11:59)
[2023-09-02] MEDS ORDERED: Vancomycin (BATCH) 1.5 GM/300 ML BAG ONE (10:59)
[2023-09-02 12:46] VITALS: BMI 46.3
[2023-09-02] MEDS: hydrALAZINE 20 MG/ML VIAL SLOW IVP PRN (15:55)
[2023-09-02] MEDS ORDERED: Vancomycin (BATCH) 1.5 GM in Premix 1 BAG IVPB SCH (21:00)
[2023-09-03 03:45] LABS: #Neutrophils 8.1 thou/uL (1.40-6.50); %Basophils 0.1 % (0.0-1.0); %Eosinophils 0.1 % (0.0-10.0); %Monocytes 10.1 % (0.0-10.0); %Neutrophils 81.4 % (42.0-75.0); Hematocrit 38.7 % (42.0-52.0); Hemoglobin 12.4 g/dL (14.0-18.0); Mean Corpuscular Hemoglobin 29.1 pg (27.0-31.0); Mean Corpuscular Volume 90.8 fl (78.0-98.0); Mean Platelet Volume 8.5 fL (7.4-10.4); Platelet Count 313 10x3/uL (130-400); RBC Distribution Width 14.2 % (11.5-14.5); Red Blood Cell (RBC) Count 4.26 mill/uL (4.70-6.10)
[2023-09-03 04:12] LABS: Anion Gap 14 mmol/L (10-20); BUN (Urea Nitrogen) 15 mg/dL (8.4-25.7); Calc. Creatinine Clearance 162 mL/min (70-130); Calcium 8.8 mg/dL (7.8-10.44); Carbon Dioxide 23 mmol/L (23-31); Chloride 103 mmol/L (98-107); Estimated GFR 92; Glucose 121 mg/dL (83-110); Potassium 4.2 mmol/L (3.5-5.1); Sodium 136 mmol/L (136-145)
[2023-09-03] MEDS ORDERED: Gabapentin 300 MG CAP PO SCH ×2 (05:00→21:00)
[2023-09-03] MEDS: hydrALAZINE 20 MG/ML VIAL SLOW IVP PRN (08:20)
[2023-09-03 08:21] VITALS: BP 178/78
[2023-09-03 08:47] VITALS: TEMP 98.2
== END 2023-09-03 09:00 | disposition home or self-care (01) | DRG 33 ==
LOC: SURG A 06:25 → CCU 12:26
PROVIDERS: ADMIT Neurological Surgery; ATTEND Neurological Surgery
PROC: 00160J6 Bypass Cerebral Ventricle to Peritoneal Cavity with Synthetic Substitute, Open Approach (ICD-10-PCS; principal; 2023-09-02)
DX: G91.2 (Idiopathic) normal pressure hydrocephalus (principal); G58.8 Other specified mononeuropathies; M19.90 Unspecified osteoarthritis, unspecified site; M43.16 Spondylolisthesis, lumbar region; E78.00 Pure hypercholesterolemia, unspecified; G89.29 Other chronic pain; Z88.8 Allergy status to other drugs, medicaments and biological substances; Z88.7 Allergy status to serum and vaccine; Z74.01 Bed confinement status
CPT/HCPCS: 36415; 80048; 85025; 85610; 85730; C1750; C1889; J0171; J0360; J1100; J2001; J2405; J2704; J3010; J3370; J3490; J7050; S0020

== ENCOUNTER 2024-03-08 16:00 | Outpatient (CLI) | payer MEDICARE, BC | END 2024-03-08 16:01 | disposition home or self-care (01) | LOC: SLEEPLAB 16:00 | PROVIDERS: ATTEND Nurse Practitioner Family | DX: G47.33 Obstructive sleep apnea (adult) (pediatric) (principal); G47.00 Insomnia, unspecified; G31.84 Mild cognitive impairment of uncertain or unknown etiology; K21.9 Gastro-esophageal reflux disease without esophagitis; R53.83 Other fatigue; R40.0 Somnolence; R06.83 Snoring; E66.9 Obesity, unspecified; Z68.41 Body mass index [BMI] 40.0-44.9, adult | CPT/HCPCS: 95800 ==